=== PATIENT | female | born 1950 | race Caucasian/White ===

== ENCOUNTER → 2020-09-19 | Outpatient (CLI) | payer MEDICARE | LOC: RAD 11:26 | DX: M79.644 Pain in right finger(s) (principal); M79.645 Pain in left finger(s); M25.561 Pain in right knee; M25.562 Pain in left knee; M25.511 Pain in right shoulder; M25.512 Pain in left shoulder | CPT/HCPCS: 73030; 73130; 73562; 73620 ==

== ENCOUNTER → 2020-09-21 | Outpatient (CLI) | payer MEDICARE | LOC: MAMO 07-12 08:00 | DX: Z12.31 Encounter for screening mammogram for malignant neoplasm of breast (principal) | CPT/HCPCS: 77063; 77067 ==

== ENCOUNTER → 2020-09-29 | Outpatient (CLI) | payer MEDICARE ==
[2020-10-01 09:14] LABS: RHEUMATOID ARTHRITIS FACTOR 62.2 IU/mL (0.0-13.9)
[2020-10-01 10:14] LABS: HBSAG SCREEN Negative (Negative); HCV AB <0.1 (0.0-0.9); HEP B CORE AB, TOT Negative (Negative)
[2020-10-02 04:08] LABS: QUANTIFERON MITOGEN VALUE >10.00 IU/mL (.); QUANTIFERON-TB GOLD PLUS Negative (Negative)
[2020-10-03 16:12] LABS: ANGIOTENSIN-CONVERTING ENZYME 38 U/L (14-82)
== END ==
LOC: LAB 15:51
PROVIDERS: Nurse Practitioner Family
DX: Z11.59 Encounter for screening for other viral diseases (principal); M06.9 Rheumatoid arthritis, unspecified; M25.50 Pain in unspecified joint; Z79.899 Other long term (current) drug therapy
CPT/HCPCS: 36415; 82164; 83520; 85652; 86140; 86431; 86704; 86803; 87340; 87522

== ENCOUNTER → 2021-02-03 | Outpatient (CLI) | payer MEDICARE ==
[2021-02-03 13:43] LABS: HEMOGLOBIN 13.6 gm/dl (12.3-15.3); RED BLOOD COUNT 4.3 M/UL (4.00-5.10); WHITE BLOOD COUNT 5.5 K/UL (4.5-11.0)
[2021-02-03 14:18] LABS: BUN/CREATININE RATIO 17 (0-10)
== END ==
LOC: LAB 11:04
PROVIDERS: Internal Medicine
DX: E53.8 Deficiency of other specified B group vitamins (principal); E55.9 Vitamin D deficiency, unspecified; M06.9 Rheumatoid arthritis, unspecified; E78.5 Hyperlipidemia, unspecified; E03.9 Hypothyroidism, unspecified; I10 Essential (primary) hypertension
CPT/HCPCS: 36415; 80053; 80061; 82746; 84439; 84443; 85025; 86140

== ENCOUNTER 2021-08-02 10:41 | Emergency (ER) | payer MEDICARE ==
[2021-08-02] MEDS ORDERED: ZOFRAN ODT 4 MG4 MG PO (14:15)
[2021-08-02] MEDS ORDERED: PERCOCET 5-3251 EACH PO (14:15)
== END 2021-08-02 15:00 | disposition home or self-care (01) ==
LOC: ER1 10:41
DX: S42.301A Unspecified fracture of shaft of humerus, right arm, initial encounter for closed fracture (principal); W19.XXXA Unspecified fall, initial encounter
CPT/HCPCS: 73030; 73060; 99283

== ENCOUNTER 2021-08-09 09:35 | Day surgery (SDC) | payer MEDICARE ==
[~2021-08-09] VITALS: Ht 165.1 cm; Wt 103.0 kg
[~2021-08-09 09:35] MED LIST: DAILY VALUE1 EACH PO; METHOTREXATE T2.5 MG PO; PERCOCET 5-3251 EACH PO; ZOFRAN ODT 4 MG4 MG PO
[2021-08-09 10:17] LABS: HEMOGLOBIN 11.8 gm/dl (12.3-15.3); RED BLOOD COUNT 3.69 M/UL (4.00-5.10); WHITE BLOOD COUNT 6.3 K/UL (4.5-11.0)
[2021-08-09 12:43] LABS: BUN/CREATININE RATIO 20 (0-10)
[2021-08-09] MEDS ORDERED: COZAAR25 MG PO (13:46)
[2021-08-09] MEDS ORDERED: FOLIC ACID1 MG PO (13:47)
[2021-08-09] MEDS ORDERED: LEVOTHYROXINE137 MCG PO (13:47)
[2021-08-09] MEDS ORDERED: HYDROCHLOROTH12.5 MG PO (13:47)
[2021-08-09] MEDS ORDERED: VITAMIN D325 MCG PO (13:48)
[2021-08-09] MEDS ORDERED: ALLEGRA ALLERG180 MG PO (13:48)
[2021-08-09 15:54] LABS: HEMOGLOBIN 10.9 gm/dl (12.3-15.3); RED BLOOD COUNT 3.46 M/UL (4.00-5.10); WHITE BLOOD COUNT 7.2 K/UL (4.5-11.0)
[2021-08-09] MEDS ORDERED: OXYCODONE HCL5 M1 PO (15:56)
[2021-08-09 16:23] LABS: BUN/CREATININE RATIO 18 (0-10)
[2021-08-09 20:54] LABS: BUN/CREATININE RATIO 22 (0-10)
[2021-08-09 20:59] LABS: HEMOGLOBIN 10.8 gm/dl (12.3-15.3); RED BLOOD COUNT 3.47 M/UL (4.00-5.10)
[2021-08-10 06:51] LABS: HEMOGLOBIN 10.1 gm/dl (12.3-15.3); RED BLOOD COUNT 3.23 M/UL (4.00-5.10); WHITE BLOOD COUNT 9.8 K/UL (4.5-11.0)
[2021-08-10 07:14] LABS: BUN/CREATININE RATIO 19 (0-10)
== END 2021-08-10 18:53 | disposition home or self-care (01) ==
LOC: OR 09:35 → M/S 09:35 → OR 08-10 18:53
PROVIDERS: Internal Medicine; Orthopaedic Surgery
DX: S42.301A Unspecified fracture of shaft of humerus, right arm, initial encounter for closed fracture (principal); W19.XXXA Unspecified fall, initial encounter; G89.18 Other acute postprocedural pain; I10 Essential (primary) hypertension; E03.9 Hypothyroidism, unspecified; E87.6 Hypokalemia; M06.9 Rheumatoid arthritis, unspecified; Z79.899 Other long term (current) drug therapy
CPT/HCPCS: 36415; 71045; 73060; 76000; 80048; 80053; 82533; 83036; 83735; 84439; 84443; 85025; 85027; 85652; 86140; 87040; 93005; 97166; 97535; C1713; J0592; J0690; J1100; J2370; J2405; J2704; J2710; J2795; J3010; J7120

== ENCOUNTER → 2021-11-03 | Outpatient (CLI) | payer MEDICARE ==
[~2021-11-03] MED LIST changes: +ALLEGRA ALLERG180 MG PO; +COZAAR25 MG PO; +FOLIC ACID1 MG PO; +HYDROCHLOROTH12.5 MG PO; +LEVOTHYROXINE137 MCG PO; +OXYCODONE HCL5 M1 PO; +POTASSIUM CHLO10 ME1 PO; +VITAMIN D325 MCG PO
== END ==
LOC: KOH-I 09:30
DX: S42.401A Unspecified fracture of lower end of right humerus, initial encounter for closed fracture (principal)
CPT/HCPCS: 73200

== ENCOUNTER → 2021-11-06 | Outpatient (CLI) | payer MEDICARE ==
[2021-11-06 13:50] LABS: HEMOGLOBIN 11.6 gm/dl (12.3-15.3); RED BLOOD COUNT 3.91 M/UL (4.00-5.10); WHITE BLOOD COUNT 5.6 K/UL (4.5-11.0)
[2021-11-06 14:22] LABS: BUN/CREATININE RATIO 26 (0-10)
== END ==
LOC: OPSV2 12:30
PROVIDERS: Orthopaedic Surgery
DX: Z01.818 Encounter for other preprocedural examination (principal); S42.201A Unspecified fracture of upper end of right humerus, initial encounter for closed fracture; X58.XXXA Exposure to other specified factors, initial encounter; R94.31 Abnormal electrocardiogram [ECG] [EKG]; R00.1 Bradycardia, unspecified; J98.11 Atelectasis
CPT/HCPCS: 36415; 71046; 80048; 81001; 85025; 86850; 86900; 86901; 87077; 87086; 87186; 93005

== ENCOUNTER → 2021-11-07 | Day surgery (SDC) | payer MEDICARE | END | disposition home or self-care (01) | LOC: OR 05:30 | DX: S42.401A Unspecified fracture of lower end of right humerus, initial encounter for closed fracture (principal); I10 Essential (primary) hypertension; M06.9 Rheumatoid arthritis, unspecified; X58.XXXA Exposure to other specified factors, initial encounter | CPT/HCPCS: 73070; 76000; C1713; J0690; J1100; J1200; J1885; J2001; J2250; J2405; J2704; J2710; J2795; J3475 ==

== ENCOUNTER 2021-11-30 10:14 | Emergency (ER) | payer MEDICARE ==
[2021-11-30 11:59] LABS: HEMOGLOBIN 12.4 gm/dl (12.3-15.3); RED BLOOD COUNT 4.2 M/UL (4.00-5.10); WHITE BLOOD COUNT 9.6 K/UL (4.5-11.0)
[2021-11-30 12:24] LABS: BUN/CREATININE RATIO 17 (0-10)
== END 2021-11-30 15:35 | disposition home or self-care (01) ==
LOC: ER1 10:14
PROVIDERS: Physician Assistant
DX: R07.89 Other chest pain (principal); I10 Essential (primary) hypertension
CPT/HCPCS: 71045; 80053; 82550; 82553; 84484; 85025; 85379; 85610; 93005; 99285; Q9967